=== PATIENT | female | born 1945 | race Asian ===

== ENCOUNTER → 2016-12-26 | Outpatient (CLI) | payer BC ==
[~2016-12-26] MED LIST: LRT5 PO
--- NOTE | 2016-12-26 16:46 | MAMMOGRAPHY REPORT ---
BILATERAL DIGITAL SCREENING MAMMOGRAM WITH CAD: 12/26/2016 CLINICAL HISTORY: Routine screening. Patient has no complaints. TECHNIQUE: Bilateral CC and MLO views were obtained. Current study was also evaluated with a Comput er Aided Detection (CAD) system. COMPARISON: Comparison is made to exams dated: 12/23/2015 mammogram, 12/22/2014 mammogram, 12/20/2013 mammogram, 12/19/2012 mammogram, 12/19/2011 mammogram, and 12/17/2010 mammogram - [facility]. BREAST COMPOSITION: The tissue of both breasts is heterogeneously dense, which may obscure small ma sses. FINDINGS: There is a stable benign calcification within the left breast. No suspicious mass, pelon ectural distortion or cluster of microcalcifications is seen. IMPRESSION: ACR BI-RADS CATEGORY 1: NEGATIVE There is no mammographic evidence of malignancy. A 1 year screening mammogram is recommended. The p atient will receive written notification of the results. Approximately 10% of breast cancers are not detected with mammography. A negative mammographic repor t should not delay biopsy if a clinically suggestive mass is present. Stephania Cool M.D. ay/:12/26/2016 16:14:09 Tile Erector: Eliz Newberry, [facility] letter sent: Normal 1/2 BI-RADS Code: ACR BI-RADS Category 1: Negative
== END | disposition home or self-care (01) ==
LOC: C.MAMM 10:41
PROVIDERS: ATTEND Internal Medicine
DX: Z12.31 Encounter for screening mammogram for malignant neoplasm of breast (principal)

== ENCOUNTER → 2017-01-26 | Outpatient (CLI) | payer BC ==
[2017-01-26 16:55] LABS: ALB/GLOB RATIO 1.1 (0.9-2); ALT/SGPT 37 U/L (12-78); AST/SGOT 40 U/L (15-37); BLOOD UREA NITROGEN 15 mg/dl (7-18); BUN/CREATININE RATIO 17.4 (10-20); CALCIUM 8.8 mg/dl (8.5-10.1); CARBON DIOXIDE 27 mmol/L (21-32); CHLORIDE 106 mmol/L (98-107); CREATININE 0.87 mg/dl (0.60-1.20); GLUCOSE 93 mg/dl (70-99); POTASSIUM 3.3 mmol/L (3.5-5.1); SODIUM 141 mmol/L (136-145)
[2017-01-26 17:06] LABS: ALKALINE PHOSPHATASE 85 U/L (45-117); CHOLESTEROL 239 mg/dl (0-200); CHOLESTEROL/HDL RATIO 2.8; HDL CHOLESTEROL 86 mg/dl; LDL CHOLESTEROL CALCULATED 142 mg/dl; TRIGLYCERIDES 54 mg/dl (0-150); VERY LOW DENSITY LIPOPROT CALC 11 mg/dl
[2017-01-30 21:29] LABS: HEP B QUANT LOG IU/ML 5.79 Log IU/mL (<1.30)
== END | disposition home or self-care (01) ==
LOC: C.LAB1850 14:36
PROVIDERS: ATTEND Internal Medicine
DX: R73.09 Other abnormal glucose (principal); E03.9 Hypothyroidism, unspecified; B18.1 Chronic viral hepatitis B without delta-agent; R78.5 Finding of other psychotropic drug in blood

== ENCOUNTER → 2017-08-03 | Outpatient (CLI) | payer BC ==
[2017-08-03 10:01] LABS: ALKALINE PHOSPHATASE 84 U/L (45-117); ALT/SGPT 50 U/L (12-78); BLOOD UREA NITROGEN 15 mg/dl (7-18); BUN/CREATININE RATIO 18.2 (10-20); CALCIUM 8.7 mg/dl (8.5-10.1); CARBON DIOXIDE 29 mmol/L (21-32); CHLORIDE 104 mmol/L (98-107); CREATININE 0.81 mg/dl (0.60-1.20); GLUCOSE 108 mg/dl (70-99); POTASSIUM 3.8 mmol/L (3.5-5.1); SODIUM 135 mmol/L (136-145)
[2017-08-03 10:03] LABS: AST/SGOT 42 U/L (15-37)
== END | disposition home or self-care (01) ==
LOC: C.LAB1850 08:29
PROVIDERS: ATTEND Internal Medicine
DX: I10 Essential (primary) hypertension (principal)

== ENCOUNTER → 2017-10-06 | Outpatient (CLI) | payer BC ==
--- NOTE | 2017-10-06 10:03 | DIAGNOSTIC IMAGING REPORT ---
KUB CLINICAL HISTORY: M54.9 Left-sided back [id number] COMPARISON STUDY: 06/12/2008 FINDINGS: There is a minor lumbar spinal curvature convex to the left. There is no pathologic bowel dilatation. There is moderate stool within the colon. The renal shadows are partially obscured overlying bowel gas and fecal material. Punctate opacities overlie the kidneys, may relate to overlying enteric contents. There are multiple nonspecific pelvic basin calcifications likely representing phleboliths. IMPRESSION: 1. No evidence of pathologic bowel dilatation 2. Punctate opacities overlie the kidneys. These could represent either tiny calculi or overlying enteric contents. Electronically signed by: Kaushik Torres M.D. 10/06/2017 10:02 AM Dictated Date/Time: 10/06/2017 10:00 AM
--- NOTE | 2017-10-06 10:04 | DIAGNOSTIC IMAGING REPORT ---
LUMBAR SPINE 5 VIEWS HISTORY: M54.9 Left-sided back [id number] COMPARISON: None. FINDINGS: There is no fracture. No subluxation. Minimal levoscoliosis. The sacrum is intact. Mild degenerative changes within the bilateral sacroiliac joints. 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 There are a few punctate bilateral renal calculi. Mild disc space narrowing at L3-L4, L4-L5, and L5-S1 with endplate osteophytes. IMPRESSION: 1. No fracture or subluxation within the lumbar spine. 2. Degenerative changes as described above. 3. Minimal levoscoliosis. 4. Bilateral nephrolithiasis. Electronically signed by: Nba Wong M.D. 10/06/2017 10:03 AM Dictated Date/Time: 10/06/2017 10:00 AM
[2017-10-06 10:42] LABS: CREATININE RANDOM URINE 37.2 mg/dl
== END | disposition home or self-care (01) ==
LOC: C.RAD1850 09:39
PROVIDERS: ATTEND Internal Medicine
DX: M54.9 Dorsalgia, unspecified (principal)

== ENCOUNTER → 2017-11-08 | Outpatient (CLI) | payer BC | END | disposition home or self-care (01) | LOC: C.LAB1850 11:48 | PROVIDERS: ATTEND Internal Medicine | DX: N39.0 Urinary tract infection, site not specified (principal) ==

== ENCOUNTER → 2017-12-28 | Outpatient (CLI) | payer BC ==
--- NOTE | 2017-12-28 14:46 | MAMMOGRAPHY REPORT ---
BILATERAL DIGITAL SCREENING MAMMOGRAM TOMOSYNTHESIS WITH CAD: 12/28/2017 CLINICAL HISTORY: Routine screening. Patient has no complaints. TECHNIQUE: Breast tomosynthesis in addition to standard 2D mammography was performed. Current study was also evaluated with a Computer Aided Detection (CAD) system. COMPARISON: Comparison is made to exams dated: 12/26/2016 mammogram, 12/23/2015 mammogram, 12/22/2014 m ammogram, 12/20/2013 mammogram, 12/19/2012 mammogram, and 12/19/2011 mammogram - [facility]. BREAST COMPOSITION: The tissue of both breasts is heterogeneously dense, which may obscure small mas ses. FINDINGS: No suspicious masses, calcifications, or areas of architectural distortion are noted in ei ther breast. There has been no significant interval change compared to prior exams. IMPRESSION: ACR BI-RADS CATEGORY 1: NEGATIVE There is no mammographic evidence of malignancy. A 1 year screening mammogram is recommended. The pa tient will receive written notification of the results. Approximately 10% of breast cancers are not detected with mammography. A negative mammographic report should not delay biopsy if a clinically suggestive mass is present. Ariadna Gupta M.D. ah/:12/28/2017 13:15:56 Django Developer: Joellen JUARESR, M, [facility] letter sent: Normal 1/2 BI-RADS Code: ACR BI-RADS Category 1: Negative
== END | disposition home or self-care (01) ==
LOC: C.MAMM 09:49
PROVIDERS: ATTEND Internal Medicine
DX: Z12.31 Encounter for screening mammogram for malignant neoplasm of breast (principal)